=== PATIENT | female | born 1990 | race Caucasian/White ===

== ENCOUNTER 2020-05-01 16:07 | Inpatient (IN) ==
[2020-05-01] MEDS ORDERED: OXYTOCIN 30 UNITS/500 ML BAG IV PRN ×2 (16:35→20:28)
--- NOTE | 2020-05-01 16:39 | History & Physical Report ---
Date of Service May 01, 2020 Assessment & Plan (1) : Normal labor in primipara at 40 weeks. Will administer IV fluids. Will attempt epidural as possible. Anticipate vaginal delivery. History of Present Illness Primary Care Provider: IKE Ceja Kerry is a 30 y/o female MELISSA 04/27/20 by ultrasound; comes in to L&D with bloody show. Membranes stripped on 04/29/20. No complications during this . Positive contractions; Positive movement; No fluid loss External FHT and external uterine monitors used; Category I tracing Had regular appointments with OB. Blood type: A positive Antibody screen: Negative Rubella: Immune GBS: Neg VDRL/RPR: Neg Gonorrhea: Neg Chlamydia: Neg HIV: Neg Allergies Allergy/AdvReac Type Severity Reaction Status Date / Time No Known Drug Allergies Allergy . Verified 04/29/20 09:20 Home Medications Home Medications Medication Instructions Recorded Confirmed Type prenat.vits,brit,[id number]-[id number] 1 tab PO DAILY 08/26/19 05/01/20 History Patient History Social History Smoking Status: Never smoker Second Hand Exposure: No; Hx Alcohol Use: No Hx Substance Use: No Preferred Language: Faroese Communication Ability: Effective Data Operations Manager Required: No Beliefs That Will Affect Care: None marital status: marital status details: Teddy Henry (29) [phone] Current Living Situation: Spouse Current Living Situation Comment: lives with spouse, 2 dogs current occupational status: employed 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 No acute distress. Cardiac: Regular rate and rhythm, no murmurs/rubs/gallops. Respiratory: Clear to auscultation bilaterally a/p, no wheezes/rales/rhonchi. No increased work of breathing. Symmetrical chest rise. No respiratory distress. Abdomen: Gravid; FH 37cm; Positive FHTs; Position: Vertex Lower Extremities: No lower extremity edema or swelling. No deep calf pain. Levi's negative bilaterally Genitourinary: OB Exam Abdomen: + vertex and + regular contractions Manual OB Exam: + cervical dilation 8 cm, + cervical effacement 90% and + station 0 OB Exam Monitor Tracing: + external FHT monitor used, + category I and + normal FHT variability Results & Data Vital Signs (Past 12 Hours) Vital Signs Temp Pulse Resp BP 05/01/20 16:15 36.7 C 96 H 20 133/89 05/01/20 16:12 96 H 133/89 Supervising Physician Co-Signing Physician Notes Resident Physician Supervision Note: I interviewed and examined the patient. Discussed with Dr. Villanueva and agree with findings and plan as documented in the note. Any exceptions or clarifications are listed here: [None] Documented By: Criss Cordova MD, FACOG Resident Activity Tracking Resident Involvement: Resident Care Provided Care Provided: OB Delivery
[2020-05-01] MEDS ORDERED: BUPIVACAINE 0.25% 30 ML VIAL ONE (16:44)
[2020-05-01] MEDS ORDERED: fentaNYL citrate 100 MCG/2 ML VIAL ONE (16:44)
[2020-05-01] MEDS ORDERED: ePHEDrine sulfate 50 MG/ML AMP ONE (16:44)
[2020-05-01] MEDS: LACTATED RINGER'S 1,000 ML IV PRN ×2 (16:45→18:49)
[2020-05-01] MEDS ORDERED: fentaNYL 2MCG/ML ROPIV 1.25MG/ML 100 ML BAG EPI ONE (16:45)
[2020-05-01 17:04] LABS: Hematocrit (blood only) 43.6 % (37-47); Hemoglobin 15.6 g/dL (12.0-16.0); Mean Corpuscular Hemoglobin 31.1 pg (25-34); Mean Corpuscular Volume 86.9 fL (80-100); Mean Platelet Volume 11.9 fL (7.4-10.4); Platelet Count 217 K/uL (130-400); RDW Coefficient of Variation 12.8 % (11.5-14.5); RDW Standard Deviation 40.8 fL (36.4-46.3); Red Blood Count 5.02 M/uL (4.2-5.4)
[2020-05-01 17:08] LABS: Mean Corpuscular Hgb Conc 35.8 g/dL (32-36)
[2020-05-01] MEDS ORDERED: ONDANSETRON INJ 2 MG/ML 2 ML VIAL IV PRN (17:40)
[2020-05-01] MEDS ORDERED: DiphenhydrAMINE HCL 50 MG/ML VIAL IV PRN (17:40)
[2020-05-01] MEDS ORDERED: NALOXONE HCL 1 MG in SODIUM CHLORIDE 0.9% 1000ML 1,000 ML IV PRN (17:40)
[2020-05-01] MEDS ORDERED: fentaNYL 2MCG/ML ROPIV 1.25MG/ML 100 ML BAG EPI PRN (17:40)
[2020-05-01] MEDS ORDERED: ePHEDrine sulfate 50 MG/ML AMP IV PRN (17:40)
[2020-05-01] MEDS ORDERED: NALOXONE HCL 0.4 MG/1 ML VIAL/CARP IV PRN (17:40)
--- NOTE | 2020-05-01 17:40 | Anesthesiology Consultation ---
Date of Service May 01, 2020 Assessment & Plan (1) Encounter for pre-operative examination: Chart Review Chart Review: Patient NOT seen in Pre Admission Testing and Acceptable Risk for Labor Epidural Consults Requested none ASA ASA2 Proposed Anesthesia Anesthesia Type: Labor Epidural and CSE Risk / Benefits Reviewed With: PT / POA / Parent / Guardian, Accepts Plan and Informed Consent Obtained History Height/Weight Height: 5 ft 6 in Weight: 94.347 kg Allergies Allergy/AdvReac Type Severity Reaction Status Date / Time No Known Drug Allergies Allergy . Verified 04/29/20 09:20 Medications Home Medications Medication Instructions Recorded Confirmed Last Taken prenat.vits,brit,fgv-kdso-acbzv 1 tab PO DAILY 08/26/19 05/01/20 05/01/20 Active Medications Generic Name Dose Route Start Last Admin Trade Name Freq PRN Reason Stop Dose Admin Lactated Ringer's 1,000 mls @ 125 mls/hr 05/01/20 16:35 05/01/20 17:37 Lr IV 05/03/20 16:34 125 mls/hr .Q8H PRN Infusion L&D Protocol Protocol NPO Date Last Intake of Fluids: 05/01/20 Time Last Intake of Fluids: 16:00 Date Last Intake of Solids: 05/01/20 Time Last Intake of Solids: 12:00 Exercise / Class Metabolic Activity II 4-5 Yardwork/Stairs/Walk up hill Past Anesthesia History No Hx of Anesthesia Complications and No Family Hx of Anesthesia Complications History of PONV No Hx of PONV and No Hx of Motion Sickness Social History Smoking Status: Never smoker Hx Alcohol Use: No alcohol intake frequency: holidays/special occasions only Hx Substance Use: No substance use type: does not use Physical Exam Vital Signs Last Vital Signs Temp 36.7 C 05/01/20 16:15 Pulse 86 05/01/20 17:37 Resp 20 05/01/20 16:15 BP 130/77 05/01/20 17:37 Pulse Ox 91 05/01/20 17:35 ENMT Mouth: no dentition abnormality Thyromental Distance: > or= 3.5 Finger Breadths Mallampati Class: II Neck normal visual inspection Respiratory normal respiratory effort Auscultation: lungs clear to auscultation bilaterally Cardiovascular Rate/Rhythm: regular rate and regular rhythm Psychiatric Orientation: alert Testing Laboratory Results 05/01/20 16:50
[2020-05-01] MEDS ORDERED: bisacodyL 10 MG SUPP PR PRN (20:28)
[2020-05-01] MEDS ORDERED: IBUPROFEN 600 MG TAB PO PRN (20:28)
[2020-05-01] MEDS ORDERED: OXYCODONE/ACETAMINOPHEN 5mg/325mg TAB PO PRN (20:28)
[2020-05-01] MEDS ORDERED: HYDROCORTISONE ACETATE 25 MG SUPP PR PRN (20:28)
[2020-05-01] MEDS ORDERED: DIPHTHERIA/TETANUS/PERTUSSIS 0.5 ML SYR/VIAL IM ONE (20:28)
[2020-05-01] MEDS ORDERED: ACETAMINOPHEN 325 MG TAB PO PRN (20:28)
[2020-05-01] MEDS ORDERED: SUPERCREAM 0.870% 15 GM JAR EXT PRN (20:28)
[2020-05-01] MEDS ORDERED: BENZOCAINE 20% AER SPR 82.5 GM CAN EXT PRN (20:28)
--- NOTE | 2020-05-01 20:58 | Delivery Summary ---
Vaginal Delivery Summary Date of Service May 01, 2020 Patient is a 30 year old white female G1, P0 who presents at 40-4/7 weeks in active labor. Contractions started regularly approximately at 1230 today. She presented at 8 cm dilated & received epidural analgesia that was effective. Membranes were ruptured for clear fluid. She progressed to full dilation and effectively pushed with delivery of a viable male over intact perineum. The rest of the infant delivered with ease. The infant was placed on the mother's abdomen for further attention and drying. There was vigorous crying and the infant was moving all 4 limbs. After cord blood was obtained the placenta was expressed intact with a three-vessel cord. bleeding was controlled with dilute Pitocin. A second-degree perineal laceration was repaired with 3-0 chromic in the usual fashion. Estimated blood loss is 300 cc. Mother and infant are doing well after delivery.
[2020-05-01] MEDS: DOCUSATE SODIUM 100 MG CAP PO SCH (21:20)
--- NOTE | 2020-05-02 00:58 | Anesthesia Procedure Note ---
Date of Service May 02, 2020 Anesthesia Post Epidural Note Vital Signs Vital Signs: Temp Pulse Resp BP Pulse Ox 36.7 C 110 H 18 133/74 84 L 05/01/20 23:00 05/01/20 23:00 05/01/20 23:00 05/01/20 23:00 05/01/20 20:08 Pain Intensity Bilateral Abdomen: Pain Intensity: 1 Notes Mental Status: alert / awake / arousable Nausea / Vomiting: adequately controlled Pain: adequately controlled Airway Patency, RR, SpO2: stable & adequate BP & HR: stable & adequate Hydration State: stable & adequate Neuraxial Anesthesia: was administered and sensory block is resolving Anesthetic Complications: no major complications apparent and Pt Satisfied with anesthetic care Epidural: Removed without complications and With tip intact
[2020-05-02 07:09] LABS: Hematocrit (blood only) 35.9 % (37-47); Hemoglobin 12.6 g/dL (12.0-16.0); Mean Corpuscular Hemoglobin 31.2 pg (25-34); Mean Corpuscular Hgb Conc 35.1 g/dL (32-36); Mean Corpuscular Volume 88.9 fL (80-100); Mean Platelet Volume 11.5 fL (7.4-10.4); Platelet Count 211 K/uL (130-400); RDW Coefficient of Variation 13.1 % (11.5-14.5); RDW Standard Deviation 42.9 fL (36.4-46.3); Red Blood Count 4.04 M/uL (4.2-5.4); White Blood Count 14.55 K/uL (4.8-10.8)
--- NOTE | 2020-05-02 07:54 | Obstetrical Progress Note ---
Date of Service May 02, 2020 Assessment & Plan (1) Encounter for care and examination after delivery: good progress continue current care plan Subjective Ambulation: ambulating normally Voiding: no voiding problems Passing Gas:: Yes Diet Tolerance:: regular diet Lochia:: Moderate Feeding Type:: breast feeding Review of Systems All systems reviewed & are unremarkable except as noted in HPI & below Physical Exam Constitutional WD/WN, vitals as above Psychiatric A+Ox3, euthymic affect Genitourinary OB Exam Abdomen: + fundal height Fundus: + firm and + relation to umbilicus (at U) Results & Data ([place]) Vital Signs (Past 12 Hours) Vital Signs Temp Pulse Pulse Resp BP BP Pulse Ox 05/02/20 03:58 97.9 F 100 H 20 130/92 05/01/20 23:00 98.1 F 110 H 18 133/74 05/01/20 22:12 121 H 18 132/62 05/01/20 21:57 116 H 138/70 05/01/20 21:45 103 H 138/83 05/01/20 21:42 120 H 18 157/69 H 05/01/20 21:27 120 H 157/69 H 05/01/20 21:12 137 H 20 141/75 H 05/01/20 20:57 137 H 20 141/75 H 05/01/20 20:42 126 H 20 155/79 H 05/01/20 20:30 136 H 20 151/105 H 05/01/20 20:12 127 H 20 121/79 05/01/20 20:08 103 H 84 L 05/01/20 20:03 101 H 73 L 05/01/20 19:54 141 H 98
[2020-05-02] MEDS: PRENATAL VITAMIN 1 TAB PO SCH (08:45)
[2020-05-02] MEDS: DOCUSATE SODIUM 100 MG CAP PO SCH ×2 (08:45→20:16)
--- NOTE | 2020-05-02 10:35 | Anesthesiology Progress Note ---
Date of Service May 02, 2020 pt has had some episodes of "spasm in her left foot which was where she felt a shock on placement of her CSE - mild sx's - no numbness or weakness - may already be lessening. Reassured that it should continue to improve and encouraged her to let us know if it continues or worsens. Anesthesia Post Procedure Vital Signs Vital Signs: Temp Pulse Pulse Resp BP BP Pulse Ox 05/02/20 07:50 36.7 C 88 18 123/82 100 05/02/20 03:58 36.6 C 100 H 20 130/92 05/01/20 23:00 36.7 C 110 H 18 133/74 05/01/20 22:12 121 H 18 132/62 05/01/20 21:57 116 H 138/70 05/01/20 21:45 103 H 138/83 05/01/20 21:42 120 H 18 157/69 H 05/01/20 21:27 120 H 157/69 H 05/01/20 21:12 137 H 20 141/75 H 05/01/20 20:57 137 H 20 141/75 H 05/01/20 20:42 126 H 20 155/79 H 05/01/20 20:30 136 H 20 151/105 H 05/01/20 20:12 127 H 20 121/79 05/01/20 20:08 103 H 84 L 05/01/20 20:03 101 H 73 L 05/01/20 19:54 141 H 98 05/01/20 19:53 8 L 82 L 05/01/20 19:51 160 H 149/70 H 05/01/20 19:49 145 H 97 05/01/20 19:48 139 H 91 05/01/20 19:45 22 05/01/20 19:44 156 H 93 05/01/20 19:42 180 H 78 L 05/01/20 19:41 141 H 154/72 H 05/01/20 19:39 144 H 93 05/01/20 19:34 144 H 99 05/01/20 19:33 153 H 216/120 H 05/01/20 19:29 150 H 97 05/01/20 19:28 152 H 92 05/01/20 19:24 136 H 99 05/01/20 19:22 143 H 89 L 07/24/20 19:21 131 H 169/79 H 05/01/20 19:19 136 H 100 05/01/20 19:15 20 05/01/20 19:14 108 H 100 05/01/20 19:12 113 H 179/97 H 05/01/20 19:09 115 H 97 05/01/20 19:04 102 H 99 05/01/20 19:02 103 H 91 05/01/20 19:01 105 H 152/81 H 05/01/20 18:59 110 H 99 05/01/20 18:54 105 H 98 05/01/20 18:53 101 H 93 05/01/20 18:49 99 H 99 05/01/20 18:48 36.7 C 20 05/01/20 18:44 91 H 100 05/01/20 18:42 93 H 137/82 05/01/20 18:39 95 H 100 05/01/20 18:34 93 H 98 05/01/20 18:31 100 H 144/79 H 05/01/20 18:29 100 H 99 05/01/20 18:27 97 H 87 L 05/01/20 18:24 93 H 100 05/01/20 18:21 88 137/77 05/01/20 18:19 92 H 100 05/01/20 18:16 87 93 05/01/20 18:14 98 H 100 05/01/20 18:12 100 H 143/88 H 05/01/20 18:09 95 H 100 05/01/20 18:04 99 H 100 05/01/20 18:01 82 139/87 05/01/20 17:59 84 100 05/01/20 17:58 76 92 05/01/20 17:56 89 18 139/83 05/01/20 17:54 85 100 05/01/20 17:53 88 18 150/69 H 05/01/20 17:49 91 H 93 05/01/20 17:46 95 H 18 124/59 L 86 L 05/01/20 17:44 99 H 99 05/01/20 17:43 81 20 124/62 05/01/20 17:40 90 20 126/86 92 05/01/20 17:38 98 H 83 L 05/01/20 17:37 86 20 130/77 05/01/20 17:35 84 91 05/01/20 17:34 89 18 126/69 05/01/20 17:33 95 H 100 05/01/20 17:31 85 125/62 05/01/20 17:22 95 H 89 L 05/01/20 17:19 89 98 05/01/20 17:14 85 100 05/01/20 17:13 92 H 89 L 05/01/20 17:08 96 H 99 05/01/20 17:03 93 H 100 05/01/20 16:58 93 H 100 05/01/20 16:53 87 100 05/01/20 16:48 96 H 100 05/01/20 16:15 36.7 C 96 H 20 133/89 05/01/20 16:12 96 H 133/89 Pain Intensity Bilateral Abdomen: Pain Intensity: 1 Notes Mental Status: alert / awake / arousable Nausea / Vomiting: adequately controlled Pain: adequately controlled Airway Patency, RR, SpO2: stable & adequate BP & HR: stable & adequate Hydration State: stable & adequate Neuraxial Anesthesia: was administered and sensory block resolved Anesthetic Complications: no major complications apparent
[2020-05-02] MEDS ORDERED: bisacodyL 5 MG TABEC PO SCH (20:00)
[2020-05-03 00:35] VITALS: TEMP 98.1
[2020-05-03 06:42] LABS: Hematocrit (blood only) 35.3 % (37-47); Hemoglobin 11.6 g/dL (12.0-16.0)
--- NOTE | 2020-05-03 07:33 | Obstetrical Progress Note ---
Date of Service May 03, 2020 Assessment & Plan (1) Status post vaginal delivery: Doing well. Plan d/c. Instructions given. Day #:: 2 Subjective Ambulation: ambulating normally Voiding: no voiding problems Passing Gas:: Yes Diet Tolerance:: regular diet Lochia:: Small Feeding Type:: breast feeding Physical Exam Constitutional WD/WN, vitals as above Cardiovascular Extremities: no calf tenderness and no edema Gastrointestinal (Abdomen) soft, nt, nd, ff/nt at u Psychiatric A+Ox3, euthymic affect Results & Data ([facility]) Vital Signs (Past 12 Hours) Vital Signs Temp Pulse Resp BP Pulse Ox 05/02/20 23:30 36.7 C 93 H 18 128/88 100 05/02/20 19:37 36.8 C 98 H 18 128/83 99
[2020-05-03] MEDS: DOCUSATE SODIUM 100 MG CAP PO SCH (08:33)
[2020-05-03] MEDS: PRENATAL VITAMIN 1 TAB PO SCH (08:34)
[2020-05-03 10:18] VITALS: BP 121/70; PULSE 74; O2SAT 99
== END 2020-05-03 13:25 | disposition home or self-care (01) | DRG 807 ==
LOC: OPB 16:07 → 4S1 16:08 → 4S2 22:45

== ENCOUNTER 2025-01-16 20:57 | Inpatient (IN) ==
[2025-01-16] MEDS ORDERED: LIDOCAINE 1% LOCAL 20 ML VIAL INFIL PRN (21:50)
[2025-01-16] MEDS ORDERED: CALCIUM CARBONATE 500 MG CHEWABLE TAB PO PRN (21:50)
[2025-01-16] MEDS ORDERED: ACETAMINOPHEN 500 MG TAB PO PRN (21:50)
[2025-01-16 22:45] LABS: Hematocrit (blood only) 38.4 % (37.0-47.0); Hemoglobin 12.8 g/dl (12.0-16.0); Mean Corpuscular Hemoglobin 27.6 pg (25.0-34.0); Mean Corpuscular Hgb Conc 33.3 g/dL (32.0-36.0); Mean Corpuscular Volume 82.9 fL (80.0-100.0); Mean Platelet Volume 10.4 fL (9.4-12.4); Platelet Count 191 K/uL (130-400); RDW Coefficient of Variation 13.5 % (11.5-14.5); RDW Standard Deviation 40.3 fL (36.4-46.3); Red Blood Count 4.63 M/uL (4.20-5.40); White Blood Count 9.86 K/ul (4.8-10.8)
[2025-01-16] MEDS: SERTRALINE HCL 50 MG TABLET PO ONE (22:49)
[2025-01-16] MEDS: ONDANSETRON INJ 2 MG/ML 2 ML VIAL ONE (23:17)
[2025-01-17] MEDS: LACTATED RINGER'S 1,000 ML IV PRN (01:35)
[2025-01-17] MEDS ORDERED: fentaNYL citrate PF 100 MCG/2 ML VIAL EPI PRN (01:47)
[2025-01-17] MEDS ORDERED: NALOXONE HCL 1 MG in SODIUM CHLORIDE 0.9% 1,000 ML IV PRN (01:47)
[2025-01-17] MEDS ORDERED: LIDOCAINE 2% MPF LOCAL 5 ML VIAL EPI PRN (01:47)
[2025-01-17] MEDS ORDERED: fentANYL 2 MCG/ML BUPIVacaine 0.125%-NSS 100ML BAG EPI PRN (01:47)
[2025-01-17] MEDS ORDERED: NALOXONE HCL 0.4 MG/1 ML VIAL/CARP IV PRN (01:47)
[2025-01-17] MEDS ORDERED: SODIUM CHLORIDE 0.9% PF INJ 10 ML VIAL EPI PRN (01:47)
[2025-01-17] MEDS ORDERED: ROPIVACAINE 0.5% PF 5 MG/ML 20 ML VIAL EPI PRN (01:47)
[2025-01-17] MEDS ORDERED: ePHEDrine sulfate 50 MG/ML AMP IV PRN (01:47)
[2025-01-17] MEDS ORDERED: diphenhydrAMINE 50 MG/ML VIAL IV PRN (01:47)
[2025-01-17] MEDS ORDERED: BUPIVACAINE 0.25% PF 30 ML VIAL EPI PRN (01:47)
[2025-01-17] MEDS ORDERED: NALBUPHINE HCL INJ 10 MG/ML AMP IV PRN (01:47)
--- NOTE | 2025-01-17 01:47 | Anesthesiology Consultation ---
Date of Service January 17, 2025 Assessment & Plan Chart Review Chart Review: Acceptable Risk for Labor Epidural Consults Requested none History Height/Weight Height: 5 ft 7 in Weight: 96.615 kg Allergies Allergy/AdvReac Type Severity Reaction Status Date / Time No Known Drug Allergies Allergy . Verified 01/16/25 08:48 Medications Home Medications Medication Instructions Recorded Confirmed Last Taken prenat.vits,brit,gro-fmff-iqcyo 1 tab PO DAILY 08/26/19 01/16/25 05/01/20 aspirin 325 mg tablet 325 mg PO DAILY 08/01/24 01/16/25 Unknown sertraline 50 mg tablet 50 mg PO HS 90 days #90 tabs 08/06/24 01/16/25 01/16/25 23:00 Past Medical History Medical History Left elbow fracture History of chicken pox Migraine Rash Past Family History Family History Grandfather Family history of diabetes mellitus Grandmother Family history of diabetes mellitus Father Hypertension Grandmother (Maternal) Breast cancer Denies family history of Ovarian cancer Colorectal cancer Past Surgical History Surgical History Nausea and vomiting after administration of anesthetic agent History of tooth extraction Status post tonsillectomy and adenoidectomy Social History Smoking Status: Never smoker Do You Dip or Chew Tobacco: No Hx Alcohol Use: No alcohol intake frequency: holidays/special occasions only Hx Substance Use: No substance use type: does not use Physical Exam Vital Signs Last Vital Signs Temp 37.0 C 01/17/25 00:30 Pulse 96 H 01/16/25 21:17 Resp 18 01/17/25 00:30 BP 134/83 01/16/25 21:17 Testing Laboratory Results 01/16/25 22:24
[2025-01-17] MEDS: LIDOCAINE 2%/EPINEPHRINE 1:200,000 20 ML PF ONE (02:26)
[2025-01-17] MEDS: fentANYL 2 MCG/ML BUPIVacaine 0.125%-NSS 100ML BAG ONE (02:34)
[2025-01-17] MEDS: fentaNYL citrate PF 100 MCG/2 ML VIAL ONE (02:41)
[2025-01-17] MEDS: ePHEDrine sulfate 50 MG/ML AMP ONE (02:41)
[2025-01-17] MEDS: SODIUM CHLORIDE 0.9% PF INJ 10 ML VIAL ONE (02:42)
[2025-01-17] MEDS: BUPIVACAINE 0.25% PF 30 ML VIAL EPI STA (02:42)
[2025-01-17] MEDS: LIDOCAINE 2%/EPINEPHRINE 1:200,000 20 ML PF EPI STA (02:42)
[2025-01-17] MEDS: BUPIVACAINE 0.25% PF 30 ML VIAL ONE (02:42)
[2025-01-17] MEDS: fentaNYL citrate PF 100 MCG/2 ML VIAL EPI STA (02:42)
[2025-01-17] MEDS: SODIUM CHLORIDE 0.9% PF INJ 10 ML VIAL EPI STA (02:43)
[2025-01-17] MEDS: OXYTOCIN 30 UNITS/NSS 30 UNITS/500 ML BAG IV PRN (06:59)
--- NOTE | 2025-01-17 07:23 | Delivery Summary ---
Vaginal Delivery Summary Date of Service January 17, 2025 Vaginal Delivery Summary and 2nd Degree LAC Spontaneous vaginal delivery the patient been planned for induction she had been checked in the office the day before by the provider in the office and that noted ruptured membranes sometime soon after the examination she reported to the hospital her contractions are initially were mild but then increased she requested epidural and then presented at fully dilated she pushed over several contractions livery baby in occiput anterior position there was a tight nuchal cord this was clamped and cut at the perineum mouth and then there suction gentle traction on the baby no excessive force easy delivery live female infant initially required some resuscitation but soon after vigorous placenta removed with traction IV Pitocin started second-degree tear repaired with 3-0 Vicryl spo nge and instrument counts correct QBL per nursing record [facility] Vaginal Delivery Charge Delivery Type Details: and 2nd Degree LAC
--- NOTE | 2025-01-17 07:40 | Anesthesia Procedure Note ---
Date of Service January 17, 2025 Anesthesia Post Epidural Note Vital Signs Vital Signs: Temp Pulse Resp BP Pulse Ox 37.2 C 92 H 18 143/56 H 99 01/17/25 04:30 01/17/25 07:33 01/17/25 07:18 01/17/25 07:33 01/17/25 06:46 Notes Mental Status: alert / awake / arousable and participated in evaluation Nausea / Vomiting: adequately controlled Pain: adequately controlled Airway Patency, RR, SpO2: stable & adequate BP & HR: stable & adequate Hydration State: stable & adequate Neuraxial Anesthesia: was administered and sensory block is resolving Anesthetic Complications: no major complications apparent Epidural: Removed without complications and With tip intact
[2025-01-17] MEDS ORDERED: bisacodyL 10 MG SUPP PR PRN (10:01)
[2025-01-17] MEDS ORDERED: HYDROCORTISONE ACETATE 25 MG SUPP PR PRN (10:01)
[2025-01-17] MEDS ORDERED: ACETAMINOPHEN 325 MG TAB PO PRN (10:01)
[2025-01-17] MEDS ORDERED: OXYTOCIN 30 UNITS/NSS 30 UNITS/500 ML BAG IV PRN (10:01)
[2025-01-17] MEDS ORDERED: DIPHTHER/TETAN/PERTUS Vaccine (Tdap, Adol/Adult) 0.5mL IM ONE (10:01)
[2025-01-17] MEDS: BENZOCAINE 20% SPRY 85 APPLN/85 GM CAN EXT PRN (10:13)
[2025-01-17] MEDS: IBUPROFEN 600 MG TAB PO PRN (16:17)
[2025-01-17 16:51] VITALS: O2SAT 97
[2025-01-17] MEDS: DOCUSATE SODIUM 100 MG CAP PO SCH (21:17)
[2025-01-17] MEDS: SERTRALINE HCL 50 MG TABLET PO SCH (21:17)
[2025-01-18 03:58] VITALS: RESP 18
--- NOTE | 2025-01-18 06:04 | Obstetrical Progress Note ---
Date of Service January 18, 2025 Assessment & Plan (1) Encounter for care and examination after delivery: Plan Pt is 34 yo post- day 1 s/p at 40w3d. complicated by Covid in 1st trimester and taking aspirin - Encourage breast feeding and ambulation - Pain control with tylenol and ibuprofen - Discharge today Admission and Anticipated Discharge Date Admission Date: January 16, 2025 Supervising Physician Co-Signing Physician Notes Resident Physician Supervision Note: I interviewed and examined the patient. Discussed with Dr. Prajapati and agree with findings and plan as documented in the note. Any exceptions or clarifications are listed here: [ ] Documented By: Nancy Barry MD, FACOG Subjective Pt is 34 yo post- day 1 s/p at 40w3d. complicated by Covid in 1st trimester and taking aspirin Ambulation:In and out of room Voiding:voiding normally Passing gas: yes BM: no Diet tolerance:regular diet Lochia:bloody, no clots Feeding type: breast Current pain level: 3 /10 improved with ibuprofen Resting comfortably this morning in NAD. Denies [place], CP, SOB, N/V/D, LE pain/swelling. Review of Systems Review of Systems: As per HPI Physical Exam Constitutional: WD/WN, vitals as above Respiratory: normal respiratory effort, lungs clear to auscultation Cardiovascular: RRR, no murmur, no edema Gastrointestinal (Abdomen): normal bowel sounds, soft, nontender, no hepatosplenomegaly Uterine fundus firm and at 1 cm below level of umbilicus Neurologic: PERRL, EOMI, accommodation nl, no face palsy, no dysarthria Moving all 4 extremities on command Psychiatric: A+Ox3, euthymic affect Results & Data Vital Signs (Past 12 Hours) Vital Signs Temp Pulse Resp BP O2 Del Method 01/18/25 03:47 36.6 C 74 18 110/71 Room Air 01/17/25 23:41 36.5 C 85 20 120/72 Room Air 01/17/25 19:13 36.7 C 78 18 Room Air Resident Activity Tracking Resident Involvement: Resident Care Provided Care Provided: OB Delivery
[2025-01-18 07:23] LABS: Hematocrit (blood only) 36.9 % (37.0-47.0); Hemoglobin 12.4 g/dl (12.0-16.0); Mean Corpuscular Hemoglobin 28.2 pg (25.0-34.0); Mean Corpuscular Hgb Conc 33.6 g/dL (32.0-36.0); Mean Corpuscular Volume 83.9 fL (80.0-100.0); Mean Platelet Volume 10.4 fL (9.4-12.4); Platelet Count 176 K/uL (130-400); RDW Coefficient of Variation 13.6 % (11.5-14.5); RDW Standard Deviation 41.4 fL (36.4-46.3); White Blood Count 10.97 K/ul (4.8-10.8)
[2025-01-18] MEDS: PRENATAL VITAMIN 1 TAB PO SCH (08:50)
[2025-01-18 09:15] VITALS: BP 109/74; PULSE 86; TEMP 97.7
[2025-01-18] MEDS ORDERED: bisacodyL 5 MG TABEC PO SCH (20:00)
== END 2025-01-18 10:41 | disposition home or self-care (01) | DRG 807 ==
LOC: OPB 20:57 → 4S1 20:58 → 4E1 01-17 09:31